=== PATIENT | male | born 1975 | race American Indian/Alaskan Native ===

== ENCOUNTER 2018-04-06 19:25 | Emergency (ER) | payer SELFPAY ==
[2018-04-06 19:40] VITALS: BP 137/89
[2018-04-06 20:12] LABS: Hemoglobin 12.7 gm/dl (11.8-15.2)
--- NOTE | 2018-04-06 20:17 | XRay Report ---
FINAL REPORT PROCEDURE: XR CHEST ROUTINE 2V TECHNIQUE: A portable AP chest radiograph was obtained at 04/06/2018 19:47 (EST) . CPT 12655 HISTORY: persistant cough and pain COMPARISON: No prior studies are available for comparison. FINDINGS: Heart: Normal. Mediastinum/Vessels: Normal. Lungs/Pleural space: There is right middle lobe infiltrate and atelectasis. There are no effusions or pneumothoraces.. Bony thorax: No acute osseous abnormality. Life support devices: None. IMPRESSION: Right middle lobe infiltrate and atelectasis..
[2018-04-06 20:25] LABS: Hematocrit 36.6 % (35.5-45.6); Mean Corpuscular HGB Conc 34 % (32-34); Mean Corpuscular Hemoglobin 33 pg (28-32); Mean Corpuscular Volume 96 fl (84-94); Platelet Count 428 K/mm3 (140-440); Red Blood Count 3.82 M/mm3 (3.65-5.03); Red Cell Distribution Width 13.6 % (13.2-15.2)
[2018-04-06 20:36] LABS: BUN/Creatinine Ratio 9; Blood Urea Nitrogen 6 mg/dL (9-20); Calcium 9.3 mg/dL (8.4-10.2); Hemolysis Index 2
--- NOTE | 2018-04-06 22:39 | Emergency Department Report ---
- General Chief Complaint: Upper Respiratory Infection Stated Complaint: CP Time Seen by Provider: 04/06/18 22:32 Source: patient Mode of arrival: Ambulatory Limitations: No Limitations - History of Present Illness Initial Comments: 42-year-old -[place] male comes to the emergency room complaining of persistent cough with green mucus and coughing so much that his right ribs hurt. Patient denies any fever. He reports that this certainly gotten worse in the last day. He has been suffering from a persistent cough for 1 week. Patient reports a past medical history of hypertension but does not take any medications as he tries to do diet control and exercise. Complaint: cough -: week(s) (1) Severity: mild Severity scale (0 -10): 9 Quality: sharp Consistency: intermittent Improves With: nothing Worsens With: activity, deep breaths Associated Symptoms: cough Treatments Prior to Arrival: none - Related Data Previous Rx's Medication Instructions Recorded Last Taken Type ALBUTEROL Inhaler [ProAir HFA 2 puff IH QID PRN #1 inhalation 04/06/18 Unknown Rx Inhaler] Ibuprofen [Motrin 800 MG tab] 800 mg PO Q8HR PRN #30 tablet 04/06/18 Unknown Rx Levofloxacin [Levaquin] 750 mg PO QDAY #10 tablet 04/06/18 Unknown Rx Allergies Allergy/AdvReac Type Severity Reaction Status Date / Time No Known Allergies Allergy Unverified 04/06/18 19:40 ED Review of Systems ROS: Stated complaint: CP Other details as noted in HPI Comment: All other systems reviewed and negative Constitutional: denies: chills, fever Respiratory: cough, shortness of breath, SOB with exertion Cardiovascular: chest pain (right-sided rib pain), dyspnea on exertion ED Past Medical Hx - Past Medical History Hx Hypertension: Yes - Social History Smoking Status: Current Every Day Smoker Substance Use Type: Alcohol - Medications Home Medications: Home Medications Medication Instructions Recorded Confirmed Last Taken Type ALBUTEROL Inhaler [ProAir HFA 2 puff IH QID PRN #1 inhalation 04/06/18 Unknown Rx Inhaler] Ibuprofen [Motrin 800 MG tab] 800 mg PO Q8HR PRN #30 tablet 04/06/18 Unknown Rx Levofloxacin [Levaquin] 750 mg PO QDAY #10 tablet 04/06/18 Unknown Rx ED Physical Exam - General Limitations: No Limitations General appearance: alert, in no apparent distress - Head Head exam: Present: atraumatic, normocephalic - Eye Eye exam: Present: normal appearance - ENT ENT exam: Present: mucous membranes moist - Cardiovascular Cardiovascular Exam: Present: tachycardia - GI/Abdominal GI/Abdominal exam: Present: soft, normal bowel sounds - Extremities Exam Extremities exam: Present: normal inspection - Back Exam Back exam: Present: normal inspection - Neurological Exam Neurological exam: Present: alert, oriented X3 - Psychiatric Psychiatric exam: Present: normal affect, normal mood - Skin Skin exam: Present: warm, dry, intact, normal color. Absent: rash ED Course Vital Signs 04/06/18 19:36 Temperature 98.3 F Pulse Rate 112 H Respiratory 20 Rate Blood Pressure 137/89 O2 Sat by Pulse 95 Oximetry ED Medical Decision Making - Lab Data Result diagrams: 04/06/18 19:47 04/06/18 19:47 - Radiology Data Radiology results: report reviewed, image reviewed FINAL REPORT PROCEDURE: XR CHEST ROUTINE 2V TECHNIQUE: A portable AP chest radiograph was obtained at 04/06/2018 19:47 (EST) . CPT 33876 HISTORY: persistant cough and pain COMPARISON: No prior studies are available for comparison. FINDINGS: Heart: Normal. Mediastinum/Vessels: Normal. Lungs/Pleural space: There is right middle lobe infiltrate and atelectasis. There are no effusions or pneumothoraces.. Bony thorax: No acute osseous abnormality. Life support devices: None. IMPRESSION: Right middle lobe infiltrate and atelectasis.. Transcribed By: CO Dictated By: SUMAYA WOODS MD Electronically Authenticated By: SUMAYA WOODS MD Signed Date/Time: 04/06/182011 DD/ 11 TD/TT: 04/06/182011 - Medical Decision Making Patient's been evaluated by this provider fast track. This patient that we'll place him on antibiotics and give her Rocephin injection here in the emergency room. Discussed the patient that he can take ibuprofen for pain. It is important that he follow up with her primary care provider. Patient verbalized understanding. Critical care attestation.: If time is entered above; I have spent that time in minutes in the direct care of this critically ill patient, excluding procedure time. ED Disposition Clinical Impression: Right middle lobe pneumonia Qualifiers: Pneumonia type: due to unspecified organism Qualified Code(s): J18.1 - Lobar pneumonia, unspecified organism Disposition: DC-01 TO HOME OR SELFCARE Is pt being admited?: No Does the pt Need Aspirin: No Condition: Stable Instructions: Bacterial Pneumonia (ED) Additional Instructions: Please complete antibiotics as prescribed. This importantly to follow up with [facility] or primary care provider for follow-up evaluation from pneumonia. Prescriptions: ALBUTEROL Inhaler [ProAir HFA Inhaler] 2 puff IH QID PRN #1 inhalation PRN Reason: Shortness Of Breath Ibuprofen [Motrin 800 MG tab] 800 mg PO Q8HR PRN #30 tablet PRN Reason: Pain Levofloxacin [Levaquin] 750 mg PO QDAY #10 tablet Referrals: [facility] [Provider Group] - 3-5 Days Forms: Work/School Release Form(ED)
[2018-04-06] MEDS ORDERED: ROCEPHIN IM ONE (22:42)
[2018-04-06] MEDS ORDERED: XYLOCAINE 1% MPF 5 mL INFILTRATI ONE (22:43)
== END 2018-04-06 23:35 | disposition home or self-care (01) ==
LOC: ED 19:25
DX: J18.1 Lobar pneumonia, unspecified organism (principal); I10 Essential (primary) hypertension; F17.200 Nicotine dependence, unspecified, uncomplicated
CPT/HCPCS: 36415; 71046; 80048; 85027; 93005; 93010; 99284; J0696